=== PATIENT | male | born 1950 | race African-American/Black ===

== ENCOUNTER 2021-05-05 08:54 | Inpatient (IN) | payer MEDICARE, MEDICAID ==
[~2021-05-05] VITALS: Ht 182.9 cm; Wt 86.2 kg
[~2021-05-05 08:54] MED LIST: ALBU8HFA IH; ASCO500T96 PO; ASPI-1132 PO; ATEN-73 PO; BENZ1TAB10 PO; CA C1TAB73 PO; DIVA-80 PO; FLUD25I IM; FLUT1DIS3 IH; LEVO25TA9 PO; LISI-893 PO; LORA10TA7 PO; METF-911 PO; MOME17N NASAL; OMEP20 PO
[2021-05-05] MEDS ORDERED: LORazepam 2 MG/ML VIAL IM ONE (09:30)
[2021-05-05] MEDS ORDERED: HALOPERIDOL LACTATE 5 MG/ML VIAL IM ONE (09:30)
[2021-05-05 09:56] LABS: BASOPHILS % (AUTO) 0.9 % (0.0-2.0); EOSINOPHILS % (AUTO) 2.7 % (1.0-6.0); HEMOGLOBIN 11.5 g/dL (13.5-17.5); LYMPHOCYTES % (AUTO) 22.5 % (22.0-44.0); MEAN CORPUSCULAR HEMOGLOBIN 26.3 pg (26.0-34.0); MEAN CORPUSCULAR HGB CONC 31.8 G/dL (31.0-37.0); MEAN CORPUSCULAR VOLUME 83 fL (80-100); MONOCYTES # (AUTO) 0.4 K/uL (0.1-1.0); MONOCYTES % (AUTO) 9.3 % (2.0-9.0); NEUTROPHILS # (AUTO) 2.8 K/uL (1.8-7.7); NEUTROPHILS % (AUTO) 64.6 % (40.0-70.0); PLATELET COUNT (AUTO) 162 K/uL (150-450); RED BLOOD CELL COUNT(AUTO) 4.35 MIL/uL (4.50-5.90); RED CELL DISTRIBUTION WIDTH 15.3 % (11.5-14.5)
[2021-05-05 10:05] LABS: ANION GAP 14 mmol/L (8-16); CALCIUM, TOTAL 9.1 mg/dL (8.8-10.5); CARBON DIOXIDE 24 mmol/L (22-29); CHLORIDE 101 mmol/L (98-107); CREATININE 1.27 mg/dL (0.60-1.30); GLUCOSE,RANDOM 176 mg/dL (70-110); SODIUM SERUM 139 mmol/L (136-145); UREA NITROGEN, BLOOD 30 mg/dL (7-18)
[2021-05-05 10:06] LABS: GLOMERULAR FILTR. RATE CALC > 60 mL/min (>60)
[2021-05-05 10:11] LABS: ALANINE AMINOTRANSFERASE 17 U/L (12-78); ALBUMIN 3.8 g/dL (3.4-5.0); ALKALINE PHOSPHATASE 53 U/L (46-116); ASPARTATE AMINOTRANSFERASE 22 U/L (15-37); BILIRUBIN,TOTAL 0.4 mg/dL (0.1-1.0); TOTAL PROTEIN, SERUM 7.3 g/dL (6.4-8.2)
[2021-05-05 10:23] LABS: VALPROIC ACID < 3 mcg/mL (50-100)
[2021-05-05] MEDS ORDERED: ZOLPIDEM TARTRATE 10 MG TABLET PO PRN (13:30)
[2021-05-05 14:10] LABS: COVID AG,FIA SOURCE NASOPHARYNGEAL
[2021-05-05 19:48] VITALS: BP 105/62
[2021-05-05] MEDS ORDERED: CHOL100044 PO (20:11)
[2021-05-05] MEDS ORDERED: FLUT1BLS9 IH (20:11)
[2021-05-05] MEDS ORDERED: ALBU8HFA IH (20:11)
[2021-05-05] MEDS ORDERED: ASPI-1444 PO (20:11)
[2021-05-05] MEDS ORDERED: PNEUMOCOCCAL VACCINE POLYVALENT 0.5 ML VIAL [PPSV23] IM. ONE (20:15)
[2021-05-05] MEDS: NICOTINE POLACRILEX 2 MG LOZENGE PO PRN (21:20)
[2021-05-06] MEDS: LEVOTHYROXINE SODIUM 25 MCG TABLET PO SCH (06:44)
[2021-05-06 06:57] LABS: CHOL/HDL RATIO 1.9 (4.2-7.3)
[2021-05-06] MEDS ORDERED: MetFORMIN HCL 500 MG TABLET PO SCH (07:30)
[2021-05-06] MEDS: ATORVASTATIN CALCIUM 10 MG TABLET PO SCH (08:15)
[2021-05-06] MEDS ORDERED: ASPIRIN 81 MG CHEWABLE TABLET PO SCH (09:00)
[2021-05-06] MEDS ORDERED: PETROLATUM,WHITE 28 GM JELLY TP PRN (09:45)
[2021-05-06] MEDS ORDERED: DOCUSATE SODIUM 100 MG CAPSULE PO PRN (09:45)
[2021-05-06] MEDS ORDERED: IBUPROFEN 400 MG TABLET PO PRN (09:45)
[2021-05-06] MEDS ORDERED: CloNIDine HCL 0.1 MG TABLET PO PRN (09:45)
[2021-05-06] MEDS ORDERED: MAG HYDROX/AL HYDROX/SIMETH ES 30 ML SUSPENSION UDCUP PO PRN (09:45)
[2021-05-06] MEDS ORDERED: ACETAMINOPHEN 325 MG TABLET PO PRN (09:45)
[2021-05-06] MEDS ORDERED: GuaiFENesin/D-METHORPHAN [SUGAR-FREE] 200-20MG/10 ML SYRUP UDCUP PO PRN (09:45)
[2021-05-06] MEDS ORDERED: LOPERAMIDE HCL 2 MG CAPSULE PO PRN (09:45)
[2021-05-06] MEDS ORDERED: ONDANSETRON HCL 4 MG TABLET PO PRN (09:45)
[2021-05-06] MEDS ORDERED: NICOTINE 14 MG/24 HOUR PATCH TD PRN (09:45)
[2021-05-06] MEDS ORDERED: MAGNESIUM HYDROXIDE SUSPENSION 30 ML UDCUP PO PRN (09:45)
[2021-05-06 16:25] VITALS: BP 103/56
[2021-05-06] MEDS: QUEtiapine FUMARATE 25 MG TABLET PO SCH ×2 (17:23→20:19)
[2021-05-06] MEDS: MetFORMIN HCL 500 MG ER TABLET PO SCH (17:23)
[2021-05-06] MEDS: BENZTROPINE MESYLATE 1 MG TABLET PO SCH (17:23)
[2021-05-06] MEDS: ARIPiprazole 15 MG TABLET PO SCH (20:19)
[2021-05-06] MEDS: ILOPERIDONE 4 MG TABLET PO SCH (20:20)
[2021-05-07] MEDS: LEVOTHYROXINE SODIUM 25 MCG TABLET PO SCH (06:41)
[2021-05-07] MEDS: MetFORMIN HCL 500 MG ER TABLET PO SCH ×2 (06:41→18:00)
[2021-05-07] MEDS ORDERED: LEVOTHYROXINE SODIUM 25 MCG TABLET PO SCH (07:00)
[2021-05-07] MEDS: NICOTINE POLACRILEX 2 MG LOZENGE PO PRN (08:40)
[2021-05-07] MEDS: FLUTICASONE/VILANTEROL 200-25 MCG/INH INHALER [14] IH SCH (08:42)
[2021-05-07] MEDS: ILOPERIDONE 4 MG TABLET PO SCH ×2 (08:42→20:10)
[2021-05-07] MEDS: ESCITALOPRAM OXALATE 20 MG TABLET PO SCH (08:43)
[2021-05-07] MEDS: ATORVASTATIN CALCIUM 10 MG TABLET PO SCH (08:43)
[2021-05-07] MEDS: CHOLECALCIFEROL (VIT D3) 1,000 UNITS [25 MCG] TABLET PO SCH (08:47)
[2021-05-07] MEDS: BENZTROPINE MESYLATE 1 MG TABLET PO SCH ×3 (08:47→16:50)
[2021-05-07] MEDS: QUEtiapine FUMARATE 25 MG TABLET PO SCH ×4 (08:47→20:11)
[2021-05-07] MEDS: ASPIRIN 81 MG DR TABLET PO SCH (08:47)
[2021-05-07] MEDS: ATENOLOL 25 MG TABLET PO SCH (08:47)
[2021-05-07] MEDS: OMEPRAZOLE 20 MG CAPSULE PO SCH (08:48)
[2021-05-07 09:09] VITALS: BP 106/53
[2021-05-07 16:23] VITALS: BP 100/55
[2021-05-07] MEDS: ARIPiprazole 15 MG TABLET PO SCH (20:10)
[2021-05-08] MEDS: LEVOTHYROXINE SODIUM 25 MCG TABLET PO SCH (06:51)
[2021-05-08] MEDS: MetFORMIN HCL 500 MG ER TABLET PO SCH ×2 (06:51→16:38)
[2021-05-08 08:36] VITALS: BP 108/63
[2021-05-08] MEDS: ILOPERIDONE 4 MG TABLET PO SCH ×2 (09:05→20:25)
[2021-05-08] MEDS: FLUTICASONE/VILANTEROL 200-25 MCG/INH INHALER [14] IH SCH (09:06)
[2021-05-08] MEDS: CHOLECALCIFEROL (VIT D3) 1,000 UNITS [25 MCG] TABLET PO SCH (09:06)
[2021-05-08] MEDS: BENZTROPINE MESYLATE 1 MG TABLET PO SCH ×3 (09:06→16:25)
[2021-05-08] MEDS: ATENOLOL 25 MG TABLET PO SCH (09:06)
[2021-05-08] MEDS: ASPIRIN 81 MG DR TABLET PO SCH (09:06)
[2021-05-08] MEDS: OMEPRAZOLE 20 MG CAPSULE PO SCH (09:08)
[2021-05-08] MEDS: LORazepam 2 MG TABLET PO PRN (09:08)
[2021-05-08] MEDS: ESCITALOPRAM OXALATE 20 MG TABLET PO SCH (09:09)
[2021-05-08] MEDS: ATORVASTATIN CALCIUM 10 MG TABLET PO SCH (09:09)
[2021-05-08] MEDS: QUEtiapine FUMARATE 25 MG TABLET PO SCH ×4 (09:09→20:25)
[2021-05-08] MEDS: HALOPERIDOL 5 MG TABLET PO PRN (09:56)
[2021-05-08 16:17] VITALS: BP 87/55
[2021-05-08] MEDS: DIVALPROEX SODIUM 500 MG DR TABLET PO SCH (20:25)
[2021-05-08] MEDS: ARIPiprazole 15 MG TABLET PO SCH (20:25)
[2021-05-09] MEDS: LEVOTHYROXINE SODIUM 25 MCG TABLET PO SCH (06:54)
[2021-05-09] MEDS: MetFORMIN HCL 500 MG ER TABLET PO SCH ×2 (06:55→17:02)
[2021-05-09] MEDS: FLUTICASONE/VILANTEROL 200-25 MCG/INH INHALER [14] IH SCH (08:23)
[2021-05-09] MEDS: ATORVASTATIN CALCIUM 10 MG TABLET PO SCH (08:23)
[2021-05-09] MEDS: NICOTINE POLACRILEX 2 MG LOZENGE PO PRN (08:23)
[2021-05-09] MEDS: ILOPERIDONE 4 MG TABLET PO SCH ×2 (08:24→20:38)
[2021-05-09] MEDS: ESCITALOPRAM OXALATE 20 MG TABLET PO SCH (08:24)
[2021-05-09] MEDS: ASPIRIN 81 MG DR TABLET PO SCH (08:27)
[2021-05-09] MEDS: DIVALPROEX SODIUM 500 MG DR TABLET PO SCH ×2 (08:27→20:38)
[2021-05-09] MEDS: OMEPRAZOLE 20 MG CAPSULE PO SCH (08:28)
[2021-05-09] MEDS: LORazepam 2 MG TABLET PO PRN (08:28)
[2021-05-09] MEDS: HALOPERIDOL 5 MG TABLET PO PRN (08:28)
[2021-05-09] MEDS: BENZTROPINE MESYLATE 1 MG TABLET PO SCH ×3 (08:28→16:00)
[2021-05-09] MEDS: CHOLECALCIFEROL (VIT D3) 1,000 UNITS [25 MCG] TABLET PO SCH (08:29)
[2021-05-09] MEDS: ATENOLOL 25 MG TABLET PO SCH (08:29)
[2021-05-09] MEDS: QUEtiapine FUMARATE 25 MG TABLET PO SCH ×4 (08:29→20:38)
[2021-05-09 08:33] VITALS: BP 90/54
[2021-05-09 16:18] VITALS: BP 90/55
[2021-05-09] MEDS: ARIPiprazole 15 MG TABLET PO SCH (20:38)
[2021-05-09 20:44] VITALS: BP 124/59
[2021-05-09 20:48] LABS: GLUCOMETER DEV NAME(LOC) 3E.C; GLUCOSE,POINT OF CARE 117 MG/DL (70-110)
[2021-05-10 06:16] LABS: GLUCOMETER DEV NAME(LOC) 3E.C; GLUCOSE,POINT OF CARE 98 MG/DL (70-110)
[2021-05-10] MEDS: MetFORMIN HCL 500 MG ER TABLET PO SCH ×2 (06:55→17:26)
[2021-05-10] MEDS: LEVOTHYROXINE SODIUM 25 MCG TABLET PO SCH (06:55)
[2021-05-10] MEDS: ILOPERIDONE 4 MG TABLET PO SCH ×2 (07:49→21:02)
[2021-05-10] MEDS: ESCITALOPRAM OXALATE 20 MG TABLET PO SCH (07:50)
[2021-05-10] MEDS: ATORVASTATIN CALCIUM 10 MG TABLET PO SCH (07:50)
[2021-05-10] MEDS: FLUTICASONE/VILANTEROL 200-25 MCG/INH INHALER [14] IH SCH (07:51)
[2021-05-10] MEDS: ASPIRIN 81 MG DR TABLET PO SCH (07:52)
[2021-05-10] MEDS: ATENOLOL 25 MG TABLET PO SCH (07:53)
[2021-05-10] MEDS: CHOLECALCIFEROL (VIT D3) 1,000 UNITS [25 MCG] TABLET PO SCH (07:54)
[2021-05-10] MEDS: DIVALPROEX SODIUM 500 MG DR TABLET PO SCH ×2 (07:54→21:02)
[2021-05-10] MEDS: BENZTROPINE MESYLATE 1 MG TABLET PO SCH ×3 (07:54→12:14)
[2021-05-10] MEDS: QUEtiapine FUMARATE 25 MG TABLET PO SCH ×4 (07:54→21:02)
[2021-05-10] MEDS: OMEPRAZOLE 20 MG CAPSULE PO SCH (07:56)
[2021-05-10 08:00] VITALS: BP 98/58
[2021-05-10] MEDS: LORazepam 2 MG TABLET PO PRN (08:06)
[2021-05-10] MEDS: HALOPERIDOL 5 MG TABLET PO PRN (08:06)
[2021-05-10 16:30] VITALS: BP 98/54
[2021-05-10 17:23] LABS: GLUCOMETER DEV NAME(LOC) 3E.C; GLUCOSE,POINT OF CARE 89 MG/DL (70-110)
[2021-05-10] MEDS: ARIPiprazole 15 MG TABLET PO SCH (21:02)
[2021-05-10] MEDS: ALBUTEROL SULFATE HFA 90 MCG/PUFF 8 GM INHALER IH PRN (21:20)
[2021-05-11] MEDS: MetFORMIN HCL 500 MG ER TABLET PO SCH ×2 (07:02→17:36)
[2021-05-11] MEDS: LEVOTHYROXINE SODIUM 25 MCG TABLET PO SCH (07:03)
[2021-05-11 07:12] LABS: GLUCOMETER DEV NAME(LOC) 3E.C; GLUCOSE,POINT OF CARE 67 MG/DL (70-110)
[2021-05-11 07:12] LABS: GLUCOMETER DEV NAME(LOC) 3E.C; GLUCOSE,POINT OF CARE 93 MG/DL (70-110)
[2021-05-11] MEDS: FLUTICASONE/VILANTEROL 200-25 MCG/INH INHALER [14] IH SCH (07:53)
[2021-05-11] MEDS: ALBUTEROL SULFATE HFA 90 MCG/PUFF 8 GM INHALER IH PRN (07:54)
[2021-05-11] MEDS: ILOPERIDONE 4 MG TABLET PO SCH ×2 (07:54→20:32)
[2021-05-11] MEDS: ATORVASTATIN CALCIUM 10 MG TABLET PO SCH (07:55)
[2021-05-11] MEDS: NICOTINE POLACRILEX 2 MG LOZENGE PO PRN (07:55)
[2021-05-11] MEDS: CHOLECALCIFEROL (VIT D3) 1,000 UNITS [25 MCG] TABLET PO SCH (07:56)
[2021-05-11] MEDS: ESCITALOPRAM OXALATE 20 MG TABLET PO SCH (07:56)
[2021-05-11] MEDS: LORazepam 2 MG TABLET PO PRN (07:56)
[2021-05-11] MEDS: DIVALPROEX SODIUM 500 MG DR TABLET PO SCH ×2 (07:56→20:32)
[2021-05-11] MEDS: QUEtiapine FUMARATE 25 MG TABLET PO SCH ×4 (07:57→20:33)
[2021-05-11] MEDS: HALOPERIDOL 5 MG TABLET PO PRN (07:57)
[2021-05-11] MEDS: ARIPiprazole 15 MG TABLET PO SCH (07:57)
[2021-05-11] MEDS: BENZTROPINE MESYLATE 1 MG TABLET PO SCH ×3 (07:57→17:36)
[2021-05-11] MEDS: ATENOLOL 25 MG TABLET PO SCH (07:57)
[2021-05-11] MEDS: OMEPRAZOLE 20 MG CAPSULE PO SCH (07:57)
[2021-05-11] MEDS: ASPIRIN 81 MG DR TABLET PO SCH (07:58)
[2021-05-11 08:56] VITALS: BP 122/66
[2021-05-11 16:15] VITALS: BP 104/62
[2021-05-11 16:36] LABS: GLUCOMETER DEV NAME(LOC) 3E.C; GLUCOSE,POINT OF CARE 68 MG/DL (70-110)
[2021-05-12] MEDS: MetFORMIN HCL 500 MG ER TABLET PO SCH ×2 (06:56→16:44)
[2021-05-12] MEDS: LEVOTHYROXINE SODIUM 25 MCG TABLET PO SCH (06:57)
[2021-05-12 06:58] LABS: GLUCOMETER DEV NAME(LOC) 3E.C; GLUCOSE,POINT OF CARE 92 MG/DL (70-110)
[2021-05-12 08:16] VITALS: BP 112/60
[2021-05-12] MEDS: ATORVASTATIN CALCIUM 10 MG TABLET PO SCH (08:25)
[2021-05-12] MEDS: FLUTICASONE/VILANTEROL 200-25 MCG/INH INHALER [14] IH SCH (08:25)
[2021-05-12] MEDS: ALBUTEROL SULFATE HFA 90 MCG/PUFF 8 GM INHALER IH PRN (08:25)
[2021-05-12] MEDS: ILOPERIDONE 4 MG TABLET PO SCH ×2 (08:25→20:20)
[2021-05-12] MEDS: ASPIRIN 81 MG DR TABLET PO SCH (08:26)
[2021-05-12] MEDS: QUEtiapine FUMARATE 25 MG TABLET PO SCH ×4 (08:26→20:19)
[2021-05-12] MEDS: HALOPERIDOL 5 MG TABLET PO PRN (08:26)
[2021-05-12] MEDS: CHOLECALCIFEROL (VIT D3) 1,000 UNITS [25 MCG] TABLET PO SCH (08:26)
[2021-05-12] MEDS: DIVALPROEX SODIUM 500 MG DR TABLET PO SCH ×2 (08:26→20:19)
[2021-05-12] MEDS: BENZTROPINE MESYLATE 1 MG TABLET PO SCH ×3 (08:27→16:45)
[2021-05-12] MEDS: ATENOLOL 25 MG TABLET PO SCH (08:27)
[2021-05-12] MEDS: ESCITALOPRAM OXALATE 20 MG TABLET PO SCH (08:28)
[2021-05-12] MEDS: OMEPRAZOLE 20 MG CAPSULE PO SCH (08:30)
[2021-05-12 14:39] LABS: COVID AG,FIA SOURCE NASOPHARYNGEAL
[2021-05-12 16:20] VITALS: BP 113/66
[2021-05-12 17:05] LABS: GLUCOMETER DEV NAME(LOC) 3E.C; GLUCOSE,POINT OF CARE 106 MG/DL (70-110)
[2021-05-12] MEDS ORDERED: MetFORMIN HCL 500 MG TABLET PO SCH (17:30)
[2021-05-12] MEDS: ARIPiprazole 15 MG TABLET PO SCH (20:19)
[2021-05-13] MEDS: LEVOTHYROXINE SODIUM 25 MCG TABLET PO SCH (06:35)
[2021-05-13] MEDS: MetFORMIN HCL 500 MG TABLET PO SCH ×2 (06:35→16:31)
[2021-05-13 06:37] LABS: GLUCOMETER DEV NAME(LOC) 3E.C; GLUCOSE,POINT OF CARE 93 MG/DL (70-110)
[2021-05-13] MEDS: ASPIRIN 81 MG DR TABLET PO SCH (08:00)
[2021-05-13] MEDS: QUEtiapine FUMARATE 25 MG TABLET PO SCH ×4 (08:00→20:13)
[2021-05-13] MEDS: ATENOLOL 25 MG TABLET PO SCH (08:01)
[2021-05-13] MEDS: DIVALPROEX SODIUM 500 MG DR TABLET PO SCH ×2 (08:01→20:12)
[2021-05-13] MEDS: OMEPRAZOLE 20 MG CAPSULE PO SCH (08:01)
[2021-05-13] MEDS: BENZTROPINE MESYLATE 1 MG TABLET PO SCH ×3 (08:01→16:31)
[2021-05-13] MEDS: CHOLECALCIFEROL (VIT D3) 1,000 UNITS [25 MCG] TABLET PO SCH (08:02)
[2021-05-13] MEDS: ILOPERIDONE 4 MG TABLET PO SCH ×2 (08:03→20:12)
[2021-05-13] MEDS: NICOTINE POLACRILEX 2 MG LOZENGE PO PRN (08:06)
[2021-05-13] MEDS: FLUTICASONE/VILANTEROL 200-25 MCG/INH INHALER [14] IH SCH (08:06)
[2021-05-13] MEDS: ATORVASTATIN CALCIUM 10 MG TABLET PO SCH (08:07)
[2021-05-13] MEDS: ESCITALOPRAM OXALATE 20 MG TABLET PO SCH (08:07)
[2021-05-13 08:32] VITALS: BP 118/62
[2021-05-13 16:39] VITALS: BP 119/68
[2021-05-13 16:40] LABS: GLUCOMETER DEV NAME(LOC) 3E.C; GLUCOSE,POINT OF CARE 131 MG/DL (70-110)
[2021-05-13] MEDS: ARIPiprazole 15 MG TABLET PO SCH (20:13)
[2021-05-14 01:55] VITALS: BP 121/86
[2021-05-14 05:37] LABS: GLUCOMETER DEV NAME(LOC) 3E.C; GLUCOSE,POINT OF CARE 71 MG/DL (70-110)
[2021-05-14] MEDS: LEVOTHYROXINE SODIUM 25 MCG TABLET PO SCH ×2 (06:40→06:42)
[2021-05-14] MEDS: MetFORMIN HCL 500 MG TABLET PO SCH ×2 (06:40→16:45)
[2021-05-14] MEDS: OMEPRAZOLE 20 MG CAPSULE PO SCH (08:07)
[2021-05-14] MEDS: CHOLECALCIFEROL (VIT D3) 1,000 UNITS [25 MCG] TABLET PO SCH (08:07)
[2021-05-14] MEDS: QUEtiapine FUMARATE 25 MG TABLET PO SCH ×4 (08:07→20:19)
[2021-05-14] MEDS: ASPIRIN 81 MG DR TABLET PO SCH (08:07)
[2021-05-14] MEDS: ATENOLOL 25 MG TABLET PO SCH (08:08)
[2021-05-14] MEDS: BENZTROPINE MESYLATE 1 MG TABLET PO SCH ×3 (08:08→16:45)
[2021-05-14] MEDS: DIVALPROEX SODIUM 500 MG DR TABLET PO SCH ×2 (08:08→20:19)
[2021-05-14] MEDS: ILOPERIDONE 4 MG TABLET PO SCH ×2 (08:09→20:19)
[2021-05-14] MEDS: ESCITALOPRAM OXALATE 20 MG TABLET PO SCH (08:09)
[2021-05-14] MEDS: ATORVASTATIN CALCIUM 10 MG TABLET PO SCH (08:09)
[2021-05-14] MEDS: FLUTICASONE/VILANTEROL 200-25 MCG/INH INHALER [14] IH SCH (08:10)
[2021-05-14 08:36] VITALS: BP 126/75
[2021-05-14 17:37] VITALS: BP 135/79
[2021-05-14 17:41] LABS: GLUCOMETER DEV NAME(LOC) 3E.C; GLUCOSE,POINT OF CARE 89 MG/DL (70-110)
[2021-05-14] MEDS: ARIPiprazole 15 MG TABLET PO SCH (20:19)
[2021-05-15] MEDS: LEVOTHYROXINE SODIUM 25 MCG TABLET PO SCH (06:58)
[2021-05-15] MEDS: MetFORMIN HCL 500 MG TABLET PO SCH ×2 (06:58→16:37)
[2021-05-15 08:22] VITALS: BP 119/61
[2021-05-15] MEDS: FLUTICASONE/VILANTEROL 200-25 MCG/INH INHALER [14] IH SCH (08:50)
[2021-05-15] MEDS: BENZTROPINE MESYLATE 1 MG TABLET PO SCH ×3 (08:50→16:37)
[2021-05-15] MEDS: ALBUTEROL SULFATE HFA 90 MCG/PUFF 8 GM INHALER IH PRN (08:50)
[2021-05-15] MEDS: CHOLECALCIFEROL (VIT D3) 1,000 UNITS [25 MCG] TABLET PO SCH (08:50)
[2021-05-15] MEDS: DIVALPROEX SODIUM 500 MG DR TABLET PO SCH ×2 (08:50→20:05)
[2021-05-15] MEDS: QUEtiapine FUMARATE 25 MG TABLET PO SCH ×4 (08:50→20:05)
[2021-05-15] MEDS: ATENOLOL 25 MG TABLET PO SCH (08:50)
[2021-05-15] MEDS: ASPIRIN 81 MG DR TABLET PO SCH (08:50)
[2021-05-15] MEDS: ESCITALOPRAM OXALATE 20 MG TABLET PO SCH (08:51)
[2021-05-15] MEDS: ILOPERIDONE 4 MG TABLET PO SCH ×2 (08:51→20:05)
[2021-05-15] MEDS: ATORVASTATIN CALCIUM 10 MG TABLET PO SCH (08:51)
[2021-05-15] MEDS: OMEPRAZOLE 20 MG CAPSULE PO SCH (08:52)
[2021-05-15 09:19] LABS: GLUCOMETER DEV NAME(LOC) 3E.C; GLUCOSE,POINT OF CARE 75 MG/DL (70-110)
[2021-05-15 16:14] VITALS: BP 90/53
[2021-05-15 16:55] LABS: GLUCOMETER DEV NAME(LOC) 3E.C; GLUCOSE,POINT OF CARE 96 MG/DL (70-110)
[2021-05-15] MEDS: ARIPiprazole 15 MG TABLET PO SCH (20:05)
[2021-05-16] MEDS: LEVOTHYROXINE SODIUM 25 MCG TABLET PO SCH (06:50)
[2021-05-16] MEDS: MetFORMIN HCL 500 MG TABLET PO SCH ×2 (06:50→17:14)
[2021-05-16 06:51] LABS: GLUCOMETER DEV NAME(LOC) 3E.C; GLUCOSE,POINT OF CARE 99 MG/DL (70-110)
[2021-05-16 08:47] VITALS: BP 115/61
[2021-05-16] MEDS ORDERED: ESCI20TA87 PO (09:09)
[2021-05-16] MEDS ORDERED: QUET25TA PO (09:11)
[2021-05-16] MEDS ORDERED: ARIP15TA27 PO (09:12)
[2021-05-16] MEDS: ALBUTEROL SULFATE HFA 90 MCG/PUFF 8 GM INHALER IH PRN (11:12)
[2021-05-16] MEDS: FLUTICASONE/VILANTEROL 200-25 MCG/INH INHALER [14] IH SCH (11:12)
[2021-05-16] MEDS: CHOLECALCIFEROL (VIT D3) 1,000 UNITS [25 MCG] TABLET PO SCH (11:13)
[2021-05-16] MEDS: ILOPERIDONE 4 MG TABLET PO SCH (11:13)
[2021-05-16] MEDS: ATORVASTATIN CALCIUM 10 MG TABLET PO SCH (11:14)
[2021-05-16] MEDS: QUEtiapine FUMARATE 25 MG TABLET PO SCH ×3 (11:14→16:22)
[2021-05-16] MEDS: ATENOLOL 25 MG TABLET PO SCH (11:14)
[2021-05-16] MEDS: BENZTROPINE MESYLATE 1 MG TABLET PO SCH ×3 (11:14→16:22)
[2021-05-16] MEDS: ESCITALOPRAM OXALATE 20 MG TABLET PO SCH (11:14)
[2021-05-16] MEDS: DIVALPROEX SODIUM 500 MG DR TABLET PO SCH (11:14)
[2021-05-16] MEDS: ASPIRIN 81 MG DR TABLET PO SCH (11:15)
[2021-05-16 11:16] LABS: COVID AG,FIA SOURCE NASOPHARYNGEAL
[2021-05-16] MEDS: OMEPRAZOLE 20 MG CAPSULE PO SCH (11:16)
[2021-05-16 12:08] VITALS: BP 115/61
[2021-05-16 16:05] VITALS: BP 120/76
[2021-05-16 16:36] LABS: GLUCOMETER DEV NAME(LOC) 3E.C; GLUCOSE,POINT OF CARE 162 MG/DL (70-110)
== END 2021-05-16 17:56 | DRG 750 ==
LOC: EMS 08:54 → 3EC 17:53
PROC: 3E0234Z Introduction of Serum, Toxoid and Vaccine into Muscle, Percutaneous Approach (ICD-10-PCS; principal; 2021-05-05)
DX: F25.0 Schizoaffective disorder, bipolar type (principal); E11.65 Type 2 diabetes mellitus with hyperglycemia; D64.9 Anemia, unspecified; E03.9 Hypothyroidism, unspecified; E55.9 Vitamin D deficiency, unspecified; F31.9 Bipolar disorder, unspecified; I10 Essential (primary) hypertension; I25.10 Atherosclerotic heart disease of native coronary artery without angina pectoris; J45.909 Unspecified asthma, uncomplicated; F17.210 Nicotine dependence, cigarettes, uncomplicated; Z20.822 Contact with and (suspected) exposure to COVID-19; K21.9 Gastro-esophageal reflux disease without esophagitis; I25.2 Old myocardial infarction; Z59.0 Homelessness; Z79.899 Other long term (current) drug therapy; Z79.82 Long term (current) use of aspirin; Z79.51 Long term (current) use of inhaled steroids; Z79.84 Long term (current) use of oral hypoglycemic drugs; Z23 Encounter for immunization
CPT/HCPCS: 80053; 80061; 80164; 82962; 83036; 85025; 87081; 99291; A9575; G0480; J1630; J2060; J3535

== ENCOUNTER 2021-12-05 02:45 | Inpatient (IN) | payer MEDICARE, MEDICAID ==
[~2021-12-05] VITALS: Ht 182.9 cm; Wt 97.5 kg
[~2021-12-05 02:45] MED LIST changes: +ARIP15TA27 PO; -ASCO500T96 PO; -ASPI-1132 PO; +ASPI-1444 PO; -CA C1TAB73 PO; +CHOL-35 PO; +ESCI20TA87 PO; -FLUD25I IM; -FLUT1DIS3 IH; -LISI-893 PO; -LORA10TA7 PO; -MOME17N NASAL; +QUET25TA PO
[2021-12-05 03:26] LABS: GLUCOMETER DEV NAME(LOC) ERT.5; GLUCOSE,POINT OF CARE 97 MG/DL (70-110)
[2021-12-05 03:32] LABS: COVID AG,FIA SOURCE NASOPHARYNGEAL
[2021-12-05 03:35] LABS: BASOPHILS % (AUTO) 0.8 % (0.0-2.0); EOSINOPHILS % (AUTO) 4.7 % (1.0-6.0); HEMATOCRIT 41.8 % (41-53); HEMOGLOBIN 13.7 g/dL (13.5-17.5); LYMPHOCYTES # (AUTO) 2.4 K/uL (1.0-4.8); LYMPHOCYTES % (AUTO) 46.2 % (22.0-44.0); MEAN CORPUSCULAR HEMOGLOBIN 27.4 pg (26.0-34.0); MEAN CORPUSCULAR HGB CONC 32.8 G/dL (31.0-37.0); MEAN CORPUSCULAR VOLUME 83 fL (80-100); MONOCYTES # (AUTO) 0.9 K/uL (0.1-1.0); NEUTROPHILS # (AUTO) 1.6 K/uL (1.8-7.7); NEUTROPHILS % (AUTO) 31.3 % (40.0-70.0); PLATELET COUNT (AUTO) 174 K/uL (150-450); RED BLOOD CELL COUNT(AUTO) 5.01 MIL/uL (4.50-5.90); RED CELL DISTRIBUTION WIDTH 16.6 % (11.5-14.5)
[2021-12-05] MEDS ORDERED: HALO5TAB2 PO (03:39)
[2021-12-05] MEDS ORDERED: MAGN400T7 PO (03:39)
[2021-12-05] MEDS ORDERED: LITH600C5 PO (03:39)
[2021-12-05] MEDS ORDERED: DIVA125C20 PO (03:39)
[2021-12-05] MEDS ORDERED: HALO100A IM (03:39)
[2021-12-05] MEDS ORDERED: LORA-1000 PO (03:39)
[2021-12-05 03:44] LABS: ANION GAP 4 mmol/L (8-16); CALCIUM, TOTAL 9.4 mg/dL (8.8-10.5); CARBON DIOXIDE 33 mmol/L (22-29); CHLORIDE 104 mmol/L (98-107); CREATININE 1.07 mg/dL (0.60-1.30); GLUCOSE,RANDOM 111 mg/dL (70-110); POTASSIUM 5.1 mmol/L (3.5-5.1); SODIUM SERUM 141 mmol/L (136-145); UREA NITROGEN, BLOOD 17 mg/dL (7-18)
[2021-12-05 03:50] LABS: AMPHET/METH SCREEN,URINE NEGATIVE (NEGATIVE); BARBITURATE SCREEN, URINE NEGATIVE (NEGATIVE); BENZODIAZEPINES SCREEN,URINE NEGATIVE (NEGATIVE); CANNABINOID SCREEN,URINE NEGATIVE (NEGATIVE); COCAINE SCREEN,URINE NEGATIVE (NEGATIVE); METHADONE SCREEN, URINE NEGATIVE (NEGATIVE); OPIATE SCREEN,URINE NEGATIVE (NEGATIVE); PHENCYCLIDINE SCREEN,URINE NEGATIVE (NEGATIVE)
[2021-12-05 03:50] LABS: GLOMERULAR FILTR. RATE CALC > 60 mL/min (>60)
[2021-12-05 03:56] LABS: ALANINE AMINOTRANSFERASE 14 U/L (12-78); ALBUMIN 3.6 g/dL (3.4-5.0); ALKALINE PHOSPHATASE 53 U/L (46-116); ASPARTATE AMINOTRANSFERASE 14 U/L (15-37); BILIRUBIN,TOTAL 0.2 mg/dL (0.1-1.0); FREE T4 (FREE THYROXINE) 0.92 ng/dL (0.76-1.46); THYROID STIMULATING HORMONE 3.65 uIU/mL (0.36-3.74); TOTAL PROTEIN, SERUM 7.8 g/dL (6.4-8.2); VALPROIC ACID 62 mcg/mL (50-100)
[2021-12-05] MEDS ORDERED: OLANZapine 5 MG RAPDIS TABLET PO PRN (05:15)
[2021-12-05] MEDS ORDERED: LORazepam 2 MG TABLET PO PRN ×2 (05:15→13:15)
[2021-12-05] MEDS ORDERED: ZOLPIDEM TARTRATE 10 MG TABLET PO PRN ×2 (05:15→12:15)
[2021-12-05 05:41] LABS: APPEARANCE,URINE CLEAR (CLEAR); BILIRUBIN,URINE NEGATIVE (NEGATIVE); GLUCOSE, URINE (UA) NEGATIVE (NEGATIVE); KETONES,URINE NEGATIVE (NEGATIVE); LEUKOCYTE ESTERASE ,URINE NEGATIVE (NEGATIVE); NITRATE,URINE NEGATIVE (NEGATIVE); OCCULT BLOOD,URINE NEGATIVE (NEGATIVE); PH,URINE 7.5 (5.0-8.0); PROTEIN,URINE NEGATIVE (NEGATIVE); UROBILINOGEN,URINE 0.2 mg/dL (<=1.0)
[2021-12-05 06:02] LABS: LITHIUM < 0.20 mmol/L (0.60-1.20)
[2021-12-05 08:25] LABS: GLUCOMETER DEV NAME(LOC) ERT.5; GLUCOSE,POINT OF CARE 87 MG/DL (70-110)
[2021-12-05] MEDS ORDERED: MAG HYDROX/AL HYDROX/SIMETH ES 30 ML SUSPENSION UDCUP PO PRN (12:15)
[2021-12-05] MEDS ORDERED: TUBERCULIN, PURIFIED PROTEIN DERIVATIVE 5 TU/0.1 ML SYRINGE ID ONE (12:15)
[2021-12-05] MEDS ORDERED: ACETAMINOPHEN 325 MG TABLET PO PRN (12:15)
[2021-12-05] MEDS ORDERED: PROMETHAZINE HCL 25 MG TABLET PO PRN (12:15)
[2021-12-05] MEDS ORDERED: MAGNESIUM HYDROXIDE SUSPENSION 30 ML UDCUP PO PRN (12:15)
[2021-12-05] MEDS ORDERED: LOPERAMIDE HCL 2 MG CAPSULE PO PRN (12:15)
[2021-12-05] MEDS ORDERED: HydrOXYzine PAMOATE 50 MG CAPSULE PO PRN (12:15)
[2021-12-05] MEDS ORDERED: GuaiFENesin/D-METHORPHAN [SUGAR-FREE] 200-20MG/10 ML SYRUP UDCUP PO PRN (12:15)
[2021-12-05] MEDS ORDERED: HALOPERIDOL 5 MG TABLET PO PRN (12:15)
[2021-12-05] MEDS: LITHIUM CARBONATE 600 MG CAPSULE PO SCH (17:07)
[2021-12-05 17:37] LABS: GLUCOMETER DEV NAME(LOC) ERT.5; GLUCOSE,POINT OF CARE 227 MG/DL (70-110)
[2021-12-05] MEDS: THIAMINE 100 MG TABLET PO SCH (20:49)
[2021-12-05] MEDS: DIVALPROEX SODIUM 500 MG ER TABLET PO SCH (20:49)
[2021-12-05] MEDS: HALOPERIDOL 5 MG TABLET PO SCH ×2 (20:49→21:00)
[2021-12-05] MEDS ORDERED: HALOPERIDOL LACTATE 5 MG/ML VIAL IM ONE (21:00)
[2021-12-05] MEDS ORDERED: LORazepam 2 MG/ML VIAL IM ONE (21:00)
[2021-12-05] MEDS: BENZTROPINE MESYLATE 0.5 MG TABLET PO SCH (21:13)
[2021-12-05] MEDS: MELATONIN 5 MG TABLET PO SCH (21:14)
[2021-12-06 07:19] LABS: HEMOGLOBIN A1C 6.4 % (3.8-5.6)
[2021-12-06 07:45] LABS: CHOL/HDL RATIO 2.6 (4.2-7.3); FREE T4 (FREE THYROXINE) 0.98 ng/dL (0.76-1.46); THYROID STIMULATING HORMONE 2.71 uIU/mL (0.36-3.74)
[2021-12-06] MEDS: THIAMINE 100 MG TABLET PO SCH ×2 (08:40→16:50)
[2021-12-06] MEDS: FOLIC ACID 1 MG TABLET PO SCH (08:40)
[2021-12-06] MEDS: OMEGA-3/DHA/EPA/FISH OIL 1,000 MG CAPSULE PO SCH (08:40)
[2021-12-06] MEDS: LITHIUM CARBONATE 600 MG CAPSULE PO SCH ×2 (08:40→16:50)
[2021-12-06] MEDS: HALOPERIDOL 5 MG TABLET PO SCH ×2 (08:40→16:50)
[2021-12-06] MEDS: MULTIVITAMINS WITH MINERALS, THERAPEUTIC TABLET PO SCH (08:42)
[2021-12-06] MEDS: BENZTROPINE MESYLATE 0.5 MG TABLET PO SCH ×2 (09:16→16:50)
[2021-12-06] MEDS ORDERED: INFLUENZA VIRUS VACCINE QVS 2021-22 (6MO+)/PF 60 MCG/0.5 ML SYRINGE IM. ONE (15:15)
[2021-12-06 15:18] VITALS: BP 129/84
[2021-12-06 15:31] LABS: GLUCOMETER DEV NAME(LOC) BV3S.; GLUCOSE,POINT OF CARE 127 MG/DL (70-110)
[2021-12-06 16:16] VITALS: BP 129/84
[2021-12-06] MEDS ORDERED: DEXTROSE 50%-WATER 25 GM/50 ML SYRINGE IVP PRN (16:45)
[2021-12-06] MEDS: INSULIN LISPRO 100 UNITS/ML SQ PRN (17:06)
[2021-12-06 19:06] LABS: GLUCOMETER DEV NAME(LOC) BV3S.; GLUCOSE,POINT OF CARE 153 MG/DL (70-110)
[2021-12-06] MEDS: DIVALPROEX SODIUM 500 MG ER TABLET PO SCH (20:25)
[2021-12-06] MEDS: MELATONIN 5 MG TABLET PO SCH (20:25)
[2021-12-07 00:03] VITALS: BP 126/82
[2021-12-07 06:46] LABS: GLUCOMETER DEV NAME(LOC) BV3S.; GLUCOSE,POINT OF CARE 88 MG/DL (70-110)
[2021-12-07] MEDS: LITHIUM CARBONATE 600 MG CAPSULE PO SCH ×2 (06:51→16:45)
[2021-12-07] MEDS: LEVOTHYROXINE SODIUM 25 MCG TABLET PO SCH (06:51)
[2021-12-07] MEDS: MetFORMIN HCL 500 MG TABLET PO SCH ×2 (06:52→17:03)
[2021-12-07] MEDS: MULTIVITAMINS WITH MINERALS, THERAPEUTIC TABLET PO SCH (08:27)
[2021-12-07] MEDS: OMEGA-3/DHA/EPA/FISH OIL 1,000 MG CAPSULE PO SCH (08:27)
[2021-12-07] MEDS: THIAMINE 100 MG TABLET PO SCH ×2 (08:27→16:45)
[2021-12-07] MEDS: CHOLECALCIFEROL (VIT D3) 1,000 UNITS [25 MCG] TABLET PO SCH (08:28)
[2021-12-07] MEDS: ASPIRIN 81 MG CHEWABLE TABLET PO SCH (08:28)
[2021-12-07] MEDS: MAGNESIUM OXIDE 400 MG TABLET PO SCH (08:28)
[2021-12-07] MEDS: BENZTROPINE MESYLATE 0.5 MG TABLET PO SCH ×2 (08:28→17:03)
[2021-12-07] MEDS: HALOPERIDOL 5 MG TABLET PO SCH ×2 (08:28→16:45)
[2021-12-07] MEDS: FOLIC ACID 1 MG TABLET PO SCH (08:28)
[2021-12-07 08:40] VITALS: BP 112/68
[2021-12-07] MEDS: ATENOLOL 25 MG TABLET PO SCH (08:40)
[2021-12-07] MEDS: LACTULOSE 20 GM/30 ML SOLUTION UDCUP PO SCH (08:44)
[2021-12-07 08:56] VITALS: BP 100/63
[2021-12-07 16:06] VITALS: BP 109/62
[2021-12-07] MEDS: INSULIN LISPRO 100 UNITS/ML SQ PRN (16:47)
[2021-12-07 18:12] LABS: GLUCOMETER DEV NAME(LOC) BV3S.; GLUCOSE,POINT OF CARE 163 MG/DL (70-110)
[2021-12-07] MEDS: DIVALPROEX SODIUM 500 MG ER TABLET PO SCH (20:10)
[2021-12-07] MEDS: MELATONIN 5 MG TABLET PO SCH (20:10)
[2021-12-08 00:03] VITALS: BP 112/65
[2021-12-08] MEDS: LEVOTHYROXINE SODIUM 25 MCG TABLET PO SCH (06:18)
[2021-12-08] MEDS: LITHIUM CARBONATE 600 MG CAPSULE PO SCH (06:18)
[2021-12-08] MEDS: MetFORMIN HCL 500 MG TABLET PO SCH ×2 (06:19→16:33)
[2021-12-08 06:22] LABS: GLUCOMETER DEV NAME(LOC) BV3S.; GLUCOSE,POINT OF CARE 81 MG/DL (70-110)
[2021-12-08] MEDS: LACTULOSE 20 GM/30 ML SOLUTION UDCUP PO SCH ×2 (08:23→09:00)
[2021-12-08] MEDS: ATENOLOL 25 MG TABLET PO SCH (08:24)
[2021-12-08] MEDS: THIAMINE 100 MG TABLET PO SCH ×2 (08:24→16:34)
[2021-12-08] MEDS: OMEGA-3/DHA/EPA/FISH OIL 1,000 MG CAPSULE PO SCH (08:24)
[2021-12-08] MEDS: MULTIVITAMINS WITH MINERALS, THERAPEUTIC TABLET PO SCH (08:25)
[2021-12-08] MEDS: BENZTROPINE MESYLATE 0.5 MG TABLET PO SCH ×2 (08:25→16:33)
[2021-12-08] MEDS: FOLIC ACID 1 MG TABLET PO SCH (08:25)
[2021-12-08] MEDS: HALOPERIDOL 5 MG TABLET PO SCH ×2 (08:25→16:33)
[2021-12-08] MEDS: ASPIRIN 81 MG CHEWABLE TABLET PO SCH (08:26)
[2021-12-08] MEDS: MAGNESIUM OXIDE 400 MG TABLET PO SCH (10:03)
[2021-12-08 10:18] VITALS: BP 100/60
[2021-12-08] MEDS: CHOLECALCIFEROL (VIT D3) 1,000 UNITS [25 MCG] TABLET PO SCH (10:35)
[2021-12-08 12:06] LABS: GLUCOMETER DEV NAME(LOC) BV3S.; GLUCOSE,POINT OF CARE 108 MG/DL (70-110)
[2021-12-08 16:03] VITALS: BP 132/77
[2021-12-08 16:31] LABS: GLUCOMETER DEV NAME(LOC) BV3S.; GLUCOSE,POINT OF CARE 143 MG/DL (70-110)
[2021-12-08] MEDS: INSULIN LISPRO 100 UNITS/ML SQ PRN (16:44)
[2021-12-08] MEDS: MELATONIN 5 MG TABLET PO SCH (20:38)
[2021-12-08] MEDS: DIVALPROEX SODIUM 500 MG ER TABLET PO SCH (20:39)
[2021-12-09 03:45] VITALS: BP 133/80
[2021-12-09 06:26] LABS: GLUCOMETER DEV NAME(LOC) BV3S.; GLUCOSE,POINT OF CARE 81 MG/DL (70-110)
[2021-12-09] MEDS: MetFORMIN HCL 500 MG TABLET PO SCH ×2 (06:30→16:24)
[2021-12-09] MEDS: LEVOTHYROXINE SODIUM 25 MCG TABLET PO SCH (06:31)
[2021-12-09 08:00] VITALS: BP 107/58
[2021-12-09] MEDS: HALOPERIDOL 5 MG TABLET PO SCH ×2 (08:48→16:24)
[2021-12-09] MEDS: MAGNESIUM OXIDE 400 MG TABLET PO SCH (08:48)
[2021-12-09] MEDS: ATENOLOL 25 MG TABLET PO SCH (08:48)
[2021-12-09] MEDS: MULTIVITAMINS WITH MINERALS, THERAPEUTIC TABLET PO SCH (08:48)
[2021-12-09] MEDS: BENZTROPINE MESYLATE 0.5 MG TABLET PO SCH ×2 (08:48→16:24)
[2021-12-09] MEDS: ASPIRIN 81 MG CHEWABLE TABLET PO SCH (08:48)
[2021-12-09] MEDS: OMEGA-3/DHA/EPA/FISH OIL 1,000 MG CAPSULE PO SCH (08:48)
[2021-12-09] MEDS: FOLIC ACID 1 MG TABLET PO SCH (08:48)
[2021-12-09] MEDS: THIAMINE 100 MG TABLET PO SCH ×2 (08:48→16:24)
[2021-12-09] MEDS: CHOLECALCIFEROL (VIT D3) 1,000 UNITS [25 MCG] TABLET PO SCH (08:48)
[2021-12-09] MEDS: LACTULOSE 20 GM/30 ML SOLUTION UDCUP PO SCH (08:54)
[2021-12-09 16:02] VITALS: BP 122/71
[2021-12-09 16:41] LABS: GLUCOMETER DEV NAME(LOC) BV3S.; GLUCOSE,POINT OF CARE 108 MG/DL (70-110)
[2021-12-09] MEDS: DIVALPROEX SODIUM 500 MG ER TABLET PO SCH (20:13)
[2021-12-09] MEDS: MELATONIN 5 MG TABLET PO SCH (20:14)
[2021-12-10 00:52] VITALS: BP 128/78
[2021-12-10] MEDS: MetFORMIN HCL 500 MG TABLET PO SCH ×2 (06:12→16:16)
[2021-12-10] MEDS: LEVOTHYROXINE SODIUM 25 MCG TABLET PO SCH (06:12)
[2021-12-10 06:16] LABS: GLUCOMETER DEV NAME(LOC) BV3N.; GLUCOSE,POINT OF CARE 81 MG/DL (70-110)
[2021-12-10 08:25] VITALS: BP 122/73
[2021-12-10] MEDS: ASPIRIN 81 MG CHEWABLE TABLET PO SCH (09:08)
[2021-12-10] MEDS: MULTIVITAMINS WITH MINERALS, THERAPEUTIC TABLET PO SCH (09:08)
[2021-12-10] MEDS: BENZTROPINE MESYLATE 0.5 MG TABLET PO SCH ×2 (09:08→16:16)
[2021-12-10] MEDS: OMEGA-3/DHA/EPA/FISH OIL 1,000 MG CAPSULE PO SCH (09:08)
[2021-12-10] MEDS: ATENOLOL 25 MG TABLET PO SCH (09:08)
[2021-12-10] MEDS: THIAMINE 100 MG TABLET PO SCH ×2 (09:08→16:16)
[2021-12-10] MEDS: FOLIC ACID 1 MG TABLET PO SCH (09:08)
[2021-12-10] MEDS: MAGNESIUM OXIDE 400 MG TABLET PO SCH (09:08)
[2021-12-10] MEDS: HALOPERIDOL 5 MG TABLET PO SCH ×2 (09:08→16:16)
[2021-12-10] MEDS: LACTULOSE 20 GM/30 ML SOLUTION UDCUP PO SCH (09:08)
[2021-12-10] MEDS: CHOLECALCIFEROL (VIT D3) 1,000 UNITS [25 MCG] TABLET PO SCH (09:08)
[2021-12-10] MEDS ORDERED: OMEG-135 PO (15:55)
[2021-12-10] MEDS ORDERED: DIVA-80 PO (15:55)
[2021-12-10] MEDS ORDERED: BENZ0.5T44 PO (15:55)
[2021-12-10] MEDS ORDERED: HALO5TAB2 PO (15:55)
[2021-12-10] MEDS ORDERED: MELA5TAB40 PO (15:55)
[2021-12-10 16:08] VITALS: BP 109/60
[2021-12-10 16:11] LABS: GLUCOMETER DEV NAME(LOC) BV3N.; GLUCOSE,POINT OF CARE 121 MG/DL (70-110)
[2021-12-10] MEDS: INSULIN LISPRO 100 UNITS/ML SQ PRN (16:20)
[2021-12-10] MEDS: MELATONIN 5 MG TABLET PO SCH (20:52)
[2021-12-10] MEDS: DIVALPROEX SODIUM 500 MG ER TABLET PO SCH (20:52)
[2021-12-11 01:48] VITALS: BP 114/65
[2021-12-11] MEDS: LEVOTHYROXINE SODIUM 25 MCG TABLET PO SCH (06:18)
[2021-12-11] MEDS: MetFORMIN HCL 500 MG TABLET PO SCH (06:18)
[2021-12-11 06:21] LABS: GLUCOMETER DEV NAME(LOC) BV3N.; GLUCOSE,POINT OF CARE 88 MG/DL (70-110)
[2021-12-11 07:54] VITALS: BP 121/63
[2021-12-11 08:12] VITALS: BP 121/63
[2021-12-11] MEDS: THIAMINE 100 MG TABLET PO SCH (08:30)
[2021-12-11] MEDS: LACTULOSE 20 GM/30 ML SOLUTION UDCUP PO SCH (08:30)
[2021-12-11] MEDS: MAGNESIUM OXIDE 400 MG TABLET PO SCH (08:31)
[2021-12-11] MEDS: MULTIVITAMINS WITH MINERALS, THERAPEUTIC TABLET PO SCH (08:31)
[2021-12-11] MEDS: FOLIC ACID 1 MG TABLET PO SCH (08:31)
[2021-12-11] MEDS: ATENOLOL 25 MG TABLET PO SCH (08:31)
[2021-12-11] MEDS: BENZTROPINE MESYLATE 0.5 MG TABLET PO SCH (08:31)
[2021-12-11] MEDS: ASPIRIN 81 MG CHEWABLE TABLET PO SCH (08:31)
[2021-12-11] MEDS: OMEGA-3/DHA/EPA/FISH OIL 1,000 MG CAPSULE PO SCH (08:31)
[2021-12-11] MEDS: CHOLECALCIFEROL (VIT D3) 1,000 UNITS [25 MCG] TABLET PO SCH (08:31)
[2021-12-11] MEDS ORDERED: LITH600C5 PO (08:53)
[2021-12-11] MEDS: HALOPERIDOL 5 MG TABLET PO SCH (09:04)
[2021-12-11 13:11] LABS: GLUCOMETER DEV NAME(LOC) POC.BV
== END 2021-12-11 16:22 | DRG 750 ==
LOC: EMS 02:45 → B3A 12-06 12:15
PROVIDERS: ADMIT Psychiatry & Neurology Psychiatry; ATTEND Psychiatry & Neurology Psychiatry
DX: F25.0 Schizoaffective disorder, bipolar type (principal); E11.9 Type 2 diabetes mellitus without complications; E03.9 Hypothyroidism, unspecified; F41.9 Anxiety disorder, unspecified; I25.10 Atherosclerotic heart disease of native coronary artery without angina pectoris; Z55.9 Problems related to education and literacy, unspecified; J44.9 Chronic obstructive pulmonary disease, unspecified; F32.A Depression, unspecified; F17.210 Nicotine dependence, cigarettes, uncomplicated; Z20.822 Contact with and (suspected) exposure to COVID-19; K21.9 Gastro-esophageal reflux disease without esophagitis; Z72.89 Other problems related to lifestyle; I25.2 Old myocardial infarction; Z78.1 Physical restraint status; Z65.3 Problems related to other legal circumstances; Z63.9 Problem related to primary support group, unspecified; Z59.9 Problem related to housing and economic circumstances, unspecified; Z79.4 Long term (current) use of insulin; Z79.82 Long term (current) use of aspirin; Z28.21 Immunization not carried out because of patient refusal
CPT/HCPCS: 80053; 80061; 80164; 80173; 80178; 81003; 82962; 83036; 84439; 84443; 85025; 86592; 87081; 99291; G0480; J1630; J2060; Q9967